=== PATIENT | female | born 1980 | race Hispanic/Latino ===

== ENCOUNTER 2018-07-24 01:24 | Inpatient (IN) | payer OTHER ==
[~2018-07-24] VITALS: Ht 157.5 cm; Wt 92.1 kg
[~2018-07-24 01:24] MED LIST: GLUCOPHAGE1000 M1 PO
--- NOTE | 2018-07-24 15:53 | Patient Discharge Instructions ---
Discharge Instructions General Discharge Information You were seen/treated for: Morbid obesity, diabetes, sleep apnea You had these procedures: Laparoscopic Sleeve Gastrectomy Watch for these problems: Bleeding, signs of infection including fever >101, increased redness, swelling or unusual drainage from incisions, increased abdominal pain, nausea, vomiting, excessive diarrhea, or no bowel movements, or any other problems, questions or concerns Do not soak the wound: Yes Daily wet to dry dressings: No No bath, but you may shower: Yes Other wound care: Glue will slough off on its own Diet Continue normal diet: No Recommended Diet: Bariatric Activity Full Activity/No Limits: No Activity Self Limited: Yes Pounds, do NOT lift more than: 10 (x 2weeks) Activity Limited to: Weight bear as tolerated Acute Coronary Syndrome Inclusion Criteria At DC or during hospital stay patient has or had the following: ACS DIAGNOSIS No Discharge Core Measures Meds if any: Prescribed or Continued at Discharge Meds if any: NOT Prescribed or Continued at Discharge Congestive Heart Failure Inclusion Criteria At DC or during hospital stay patient has or had the following: CHF DIAGNOSIS No Discharge Core Measures Meds if any: Prescribed or Continued at Discharge Meds if any: NOT Prescribed or Continued at Discharge Cerebrovascular accident Inclusion Criteria At DC or during hospital stay patient has or had the following: CVA/TIA Diagnosis No Discharge Core Measures Meds if any: Prescribed or Continued at Discharge Meds if any: NOT Prescribed or Continued at Discharge Venous thromboembolism Inclusion Criteria VTE Diagnosis No VTE Type NONE VTE Confirmed by (Test) NONE Discharge Core Measures - Per Current guidelines, there needs to be overlap - treatment for the first 5 days of Warfarin therapy. - If discharged on Warfarin prior to 5 days of - overlap therapy, the patient will need to be - assessed for post discharge needs including - *Post discharge parental anticoagulation - *Warfarin and/or parental anticoagulation education - *Follow up date to check INR post discharge At least 5 days overlap therapy as Inpatient No Meds if any: Prescribed or Continued at Discharge Note: Overlap Therapy is Warfarin and Anticoagulant Meds if any: NOT Prescribed or Continued at Discharge
--- NOTE | 2018-07-24 15:54 | Surg Short-stay <48hrs Dis Sum ---
Visit Information Visit Dates Admission Date: 07/24/18 Discharge Date: 07/25/18 Surgical Short Stay DC Summary Admission Diagnosis: Morbid obesity, diabetes, sleep apnea Final Diagnosis: Morbid obesity Procedure(s): Robotic sleeve gastrectomy Summary/Significant Findings: This is a 38 yo female with a past medical history significant for ESTEE, DMII and morbid obesity who presented electively for robotic sleeve gastrectomy. Patient underwent the aforementioned procedure without complication. Postoperative course was uncomplicated. She was initiated on a bariatric stage I diet day of surgery and underwent an upper GI on postop day #1 which revealed no obstruction or leak. She was placed back on a bariatric stage I diet which she tolerated without difficulty. By time of discharge patient was ambulating, voiding, tolerating a bariatric stage I diet, and pain was well-controlled with oral analgesia. Plan is for the patient to follow-up with Dr. Knight in 1-2 weeks. She was instructed to call sooner with any other problems, questions, or concerns. Full details of her hospital course, operative report, and diagnostic studies can be found in the patient's electronic chart. Condition at Discharge: Stable Discharge Disposition: home or self care Discharge instructions provided to patient/family: Yes Post discharge follow-up plan: With Dr. Knight in 1-2 weeks Copies to: Aydin Xiao
--- NOTE | 2018-07-24 15:54 | Admission Core Measures ---
Acute Coronary Syndrome (CM) ACS Core Measures Acute Coronary Syndrome Diagnosis No Congestive Heart Failure (NEW) CHF Core Measures Congestive Heart Failure Diagnosis No Cerebrovascular Accident CVA Core Measures CVA/TIA Diagnosis No Venous Thromboembolism VTE Core Vineet (View Protocol) VTE Risk Factors Surgery No Mechanical VTE Prophylaxis d/t N/A MechProphylax Ordered No VTE Pharm Prophylaxis d/t NA PharmProphylax ordered Problem List As ranked by this Provider includes Assessment & Plan 1. Morbid obesity 2. S/P laparoscopic sleeve gastrectomy HOME MEDS Home Med List Metformin HCl (Glucophage) 1,000 MG TABLET 1 TAB PO DAILY DIABETES (Reported)
--- NOTE | 2018-07-24 17:52 | PN- General Surgery ---
Subjective Subjective: POC Pt recovering in PACU, complains of nausea, has not vomited. Has had some ice- chips only. has some mid-abdominal pain. Denies CP/SOB. Has not voided or ambulated yet Objective Vital Signs and I&Os VSS, afebrile Physical Exam: gen- NAD resp- clear cardiac-RRR abd- soft, NT, minimal BS. incisions clean and dry, covered with glue. Current Medications: Current Medications Sig/Rangel Start time Last Medication Dose Route Stop Time Status Admin Acetaminophen 1,000 MG Q6H 07/24 1545 UNVr N/A 1 UNIT IV 07/25 0959 Acetaminophen 0 .STK-MED ONE 07/24 1325 DC IV Cefazolin Sodium 2,000 MG ONCE 07/24 0000 NR IV 07/24 2359 Dexamethasone 10 MG ONCE 07/24 0000 NR IV 07/24 2359 Diphenhydramine HCl 50 MG Q6P PRN 07/24 1545 UNVr IV Docusate Sodium 100 MG BID 07/24 2100 UNVr PO Enoxaparin Sodium 40 MG DAILY 07/25 0900 UNVr SC Fentanyl Citrate 0 .STK-MED ONE 07/24 1326 DC .ROUTE Haloperidol 0 .STK-MED ONE 07/24 1739 DC .ROUTE Heparin Sodium 0 .STK-MED ONE 07/24 1129 DC (Porcine) .ROUTE Heparin Sodium 5,000 UNIT PRE 07/24 0000 NR (Porcine) SC 07/24 2359 Hydromorphone HCl 0 .STK-MED ONE 07/24 1732 DC .ROUTE Hydromorphone HCl 0 .STK-MED ONE 07/24 1711 DC .ROUTE Hydromorphone HCl 0 .STK-MED ONE 07/24 1659 DC .ROUTE Hydromorphone HCl 0 .STK-MED ONE 07/24 1636 DC .ROUTE Hydromorphone HCl 0 .STK-MED ONE 07/24 1325 DC .ROUTE Insulin Human Regular 0 TIDAC/HS 07/24 1700 UNVr SC Ketorolac 15 MG Q6 07/24 1800 UNVr Tromethamine IV 07/25 1801 Ketorolac 0 .STK-MED ONE 07/24 1326 DC Tromethamine .ROUTE Lactated Ringer's 1,000 ML Q13H 07/24 1545 UNVr IV Metoclopramide HCl 10 MG Q6P PRN 07/24 1545 UNVr IV Morphine Sulfate 2 MG Q4P PRN 07/24 1545 UNVr IV Morphine Sulfate 4 MG Q4P PRN 07/24 1545 UNVr IV Ondansetron HCl 0 .STK-MED ONE 07/24 1606 DC .ROUTE Ondansetron HCl 4 MG Q6P PRN 07/24 1545 UNVr IV Ondansetron HCl 0 .STK-MED ONE 07/24 1325 DC .ROUTE Oxycodone/ 1 TAB Q4P PRN 07/24 1545 UNVr Acetaminophen PO Oxycodone/ 2 TAB Q4P PRN 07/24 1545 UNVr Acetaminophen PO Pantoprazole Sodium 40 MG DAILY 07/24 1538 UNVr IV Polyethylene Glycol 17 GM DAILY 07/25 0900 UNVr PO Simethicone 80 MG TID 07/24 2100 UNVr PO Trimethobenzamide HCl 0 .STK-MED ONE 07/24 1704 DC IM Results Last 48 Hours of Labs: Laboratory Tests 07/24 1110 Urines Urine Test NEGATIVE Assessment/Plan Assessment/Plan 38yo obese F SP robotic sleeve gastrectomy POD0. stable in PACU with complaints of nausea anti-emetics as needed bariatric stage 1 diet as tolerated NPO after midnight for possible upper GI in AM if still nauseous pain management IVF overngiht FU AM labs dvt ppx- lovenox gi ppx- protonix regular home meds IS encourage ambulation dc planning- possibly home tomorrow if nausea subsides Core Measures Venous Thromboembolism VTE Risk Factors Surgery No Mechanical VTE Prophylaxis d/t N/A MechProphylax Ordered No VTE Pharm Prophylaxis d/t NA PharmProphylax ordered
--- NOTE | 2018-07-24 19:01 | Operative Report ---
Operative/Inv Procedure Report Surgery Date: 07/24/18 Name of Procedure: Laparoscopic assisted sleeve gastrectomy with da Red robot Pre-Operative Diagnosis: Morbid obesity Post-Operative Diagnosis: Morbid obesity Estimated Blood Loss: less than 50ml Surgeon/Registered Mail Clerk: Antonia JARAMILLO,Seth Ruth PA-C Anesthesia: general endotracheal tube, block IV Fluids: LR Urine Output: not measured Drains: none Specimens: portion of stomach Complications: none Condition: stable Operative/Procedure Note Note: After informed consent and proper identification patient was taken to the operating room placed on the operating table in supine position. Venodyne stockings were applied. She underwent a general endotracheal anesthetic. Anesthesia placed a tap block. The abdomen was prepped and draped in normal sterile fashion. Using a 0 5 mm Stortz laparoscope through an 8 mm robotic this support we entered just to the left of midline umbilicus dissecting through the rectus muscle and the posterior sheath and peritoneum without difficulty insufflating the abdomen with 14 mm CO2 pressure we had excellent visualization was placed additional trochars to 8 mm trochars one to the right of midline umbilicus 1 to the left lateral position and then in between the 2 left-sided ports a 12 mm trocar. We docked the robot and targeted to arm #2 the camera port in the 8 mm port just to the left of midline umbilicus. We placed the Mikhail liver retractor in the upper midline retract the left lobe of the liver. There is no evidence of a hiatal hernia. We had excellent visualization. We docked the remaining arms of the robot. We used 2 graspers in the arms 1 and 4 and a vessel sealer in arm 2 and began to dissect the vessels off of the greater curvature of the stomach preserving the gastroepiploic's and taking the short gastrics all the way up to the ankle has reflected the fundus of the stomach medially off of the left basilio. We had anesthesia to decompress the stomach with an orogastric tube and then remove it and then place a 40 Ukrainian bougie. We were careful to identify the splenic vessel spleen and pancreas not to injure them. We began stapling using 3 Urdu 45 mm cartridges followed by 3 balloon 45 mm cartridges to completely transect the remnant stomach from the newly created sleeve we oversewed the entire staple line using a 3-0 absorbable V lock suture on a CV23 needle. We had excellent hemostasis there is no significant bleeding. Sponge and instrument counts were correct as removed the needle and all instruments we removed the Mikhail liver retractor removed the remnant stomach and a 12 Endo Catch bag through the 12 mm port. We sewed the skin incisions closed with 4-0 Monocryl subcuticular stitches. Skin glue was applied. The patient tolerated the procedure without complications was extubated and taken the recovery room in stable condition Findings: smooth liver no hiatal hernia Discharge Disposition: PACU
[2018-07-24 20:00] VITALS: BP 144/78
[2018-07-24 23:59] VITALS: BP 134/76
[2018-07-25 03:58] VITALS: BP 132/70
[2018-07-25 08:13] LABS: ABSOLUTE BASOPHIL COUNT 0 /CUMM (0.0-0.2); ABSOLUTE EOSINOPHIL COUNT 0 /CUMM (0.0-0.7); ABSOLUTE GRANULOCYTE CT 15.9 /CUMM (1.4-6.5); ABSOLUTE MONOCYTE COUNT 0.9 /CUMM (0.10-0.60); BASOPHIL % 0 % (0.0-2.0); EOSINOPHIL % 0 % (0-5); HEMATOCRIT 34.7 % (37-47); MEAN CORPUSCULAR HGB CONC 34.1 G/DL (33.0-37.0); MEAN CORPUSCULAR VOLUME 82.1 FL (81.0-99.0); MEAN PLATELET VOLUME 8.2 FL (7.4-10.4); PLATELET COUNT 359 /CUMM (130-400); RBC DISTRIBUTION WIDTH 13.9 % (11.5-14.5); RED BLOOD CELL CT 4.23 /CUMM (4.20-5.40); WHITE BLOOD CELL COUNT 17.8 /CUMM (4.8-10.8)
[2018-07-25 08:15] VITALS: BP 134/66
--- NOTE | 2018-07-25 08:28 | PN- Bariatrics ---
Subjective Subjective: Reports previous nausea / vomiting has resolved. Currently npo, awaiting upper gi study. Out of bed to bathroom. Voiding well. No dizziness. No shortness of breath. No chest pains. Objective Vital Signs and I&Os Vital Signs Date Time Temp Pulse Resp B/P B/P Pulse O2 O2 Flow FiO2 Mean Ox Delivery Rate 07/25 815 98.4 106 18 134/66 98 Room Air 07/25 0358 98.5 108 18 132/70 95 Room Air 07/24 2359 98.6 112 18 134/76 95 Room Air 07/24 2050 Room Air Room Air 07/24 2000 98.4 107 18 144/78 93 Room Air Intake & Output 07/25 1600 07/25 0807/25 0000 07/24 1600 07/24 0000 Intake Total 760 50 Output Total 475 305 Balance 285 -255 Intake, IV 760 20 Intake, Oral 0 30 Number 0 0 Bowel Movements Output, 5 Emesis Output, Urine 475 300 Patient 203 lb Weight Weight Bed scale Measurement Method Physical Exam: General - alert & oriented x 3. comfortable. no acute distress. Lungs - clear bilaterally. no w/r/r. Cardiac - s1s2. slightly tachycardic. Abdomen - soft. incisions well approximated with skin glue. no drains. osmar- incisional tenderness. Extremities - warm bilaterally. no c/c/e. calves soft and nontender b/l. athrombics active. Current Medications: Current Medications Sig/Rangel Start time Last Medication Dose Route Stop Time Status Admin Acetaminophen 1,000 MG Q6H 07/24 1545 AC 07/25 N/A 1 UNIT IV 07/25 0959 0407 Acetaminophen 0 .STK-MED ONE 07/24 1325 DC IV Cefazolin Sodium 2,000 MG ONCE 07/24 0000 DC IV 07/24 2359 Dexamethasone 10 MG ONCE 07/24 0000 DC IV 07/24 235 Diphenhydramine HCl 50 MG Q6P PRN 07/24 1545 AC IV Docusate Sodium 100 MG BID 07/24 2100 DC PO Enoxaparin Sodium 40 MG DAILY 07/25 0900 AC SC Fentanyl Citrate 0 .STK-MED ONE 07/24 1326 DC .ROUTE Haloperidol 0 .STK-MED ONE 07/24 1739 DC .ROUTE Heparin Sodium 0 .STK-MED ONE 07/24 1129 DC (Porcine) .ROUTE Heparin Sodium 5,000 UNIT PRE 07/24 0000 DC (Porcine) SC 07/24 2359 Hydrocodone Bitart/ 15 ML Q4-6 PRN PRN 07/25 08 AC Acetaminophen PO Hydromorphone HCl 0 .STK-MED ONE 07/24 1900 DC .ROUTE Hydromorphone HCl 0 .STK-MED ONE 07/24 1820 DC .ROUTE Hydromorphone HCl 0 .STK-MED ONE 07/24 1755 DC .ROUTE Hydromorphone HCl 0 .STK-MED ONE 07/24 1732 DC .ROUTE Hydromorphone HCl 0 .STK-MED ONE 07/24 1711 DC .ROUTE Hydromorphone HCl 0 .STK-MED ONE 07/24 1659 DC .ROUTE Hydromorphone HCl 0 .STK-MED ONE 07/24 1636 DC .ROUTE Hydromorphone HCl 0 .STK-MED ONE 07/24 1325 DC .ROUTE Insulin Human Regular 0 Q6 07/24 2359 AC 07/25 SC 0636 Insulin Human Regular 0 TIDAC/HS 07/24 1700 DC SC Ketorolac 15 MG Q6 07/24 1800 AC 07/25 Tromethamine IV 07/25 1801 0636 Ketorolac 0 .STK-MED ONE 07/24 1326 DC Tromethamine .ROUTE Lactated Ringer's 1,000 ML Q13H 07/24 1545 AC 07/24 IV 1955 Metoclopramide HCl 10 MG Q6P PRN 07/24 1545 DC 07/24 IV 2249 Morphine Sulfate 2 MG Q4P PRN 07/24 1545 AC IV Morphine Sulfate 4 MG Q4P PRN 07/24 1545 AC 07/25 IV 0822 Ondansetron HCl 0 .STK-MED ONE 07/24 1606 DC .ROUTE Ondansetron HCl 4 MG Q6P PRN 07/24 1545 AC 07/24 IV 1955 Ondansetron HCl 0 .STK-MED ONE 07/24 1325 DC .ROUTE Oxycodone/ 1 TAB Q4P PRN 07/24 1545 DC Acetaminophen PO Oxycodone/ 2 TAB Q4P PRN 07/24 1545 DC Acetaminophen PO Pantoprazole Sodium 40 MG DAILY 07/24 1538 AC IV Polyethylene Glycol 17 GM DAILY 07/25 0900 CAN PO Simethicone 80 MG TID 07/24 2100 AC 07/24 PO 2126 Trimethobenzamide HCl 0 .STK-MED ONE 07/24 1704 DC IM Results Last 48 Hours of Labs: Laboratory Tests 07/25 07/24 0731 1110 Chemistry Sodium Pending Potassium Pending Chloride Pending Carbon Dioxide Pending Anion Gap Pending BUN Pending Creatinine Pending BUN/Creatinine Ratio Pending Hematology CBC w Diff Pending WBC Pending RBC Pending Hgb Pending Hct Pending MCV Pending MCH Pending MCHC Pending RDW Pending Plt Count Pending MPV Pending Urines Urine Test NEGATIVE Assessment/Plan Assessment/Plan This 38 year old female with history of morbid obesity and niddm, POD#1 s/p laparoscopic assisted sleeve gastrectomy with da Red robot, post-op nausea / vomiting resolved this morning currently npo / iv fluids, awaiting upper gi study pain medication as ordered oob/ambulation encouraged lovenox - dvt ppx. no indication for lovenox at discharge, as per pre-op risk assessment protonix - gi ppx accuchecks / ss coverage. hold metformin f/u labs and ugi study stage 1 diet after ugi anti-emetics as ordered will d/w Core Measures Venous Thromboembolism VTE Risk Factors Surgery No Mechanical VTE Prophylaxis d/t N/A MechProphylax Ordered No VTE Pharm Prophylaxis d/t NA PharmProphylax ordered
[2018-07-25 08:52] LABS: GRANULOCYTE % 89.4 % (42.2-75.2)
--- NOTE | 2018-07-25 09:43 | RADIOLOGY REPORT ---
EXAMINATION: FL UPPER GI SERIES CLINICAL INFORMATION: 38-year-old female with history of morbid obesity status post sleeve gastrectomy. COMPARISON: None TECHNIQUE: A single contrast upper GI series with fluoroscopy and spot imaging was performed. The patient ingested 30 mL of Gastroview contrast material without difficulty and was evaluated in the upright and recumbent positions. FLUOROSCOPY TIME: 19 seconds. NUMBER OF IMAGES: 7 images FINDINGS: After oral intake of 30 mL of Gastroview contrast material, there was no delay in passage of contrast through the esophagus and into the stomach, which had the expected configuration after sleeve gastrectomy. There was normal passage of contrast into the duodenum. No evidence of a fixed filling defect, mucosal thickening, upper gastrointestinal tract obstruction or contrast leakage. IMPRESSION: Normal configuration of the stomach after sleeve gastrectomy. No contrast leakage.
[2018-07-25] MEDS ORDERED: HYDROCODON-ACET15 ML PO (11:44)
[2018-07-25] MEDS ORDERED: PROTONIX40 M3 PO (11:47)
[2018-07-25 14:15] VITALS: BP 128/76
== END 2018-07-25 17:01 | DRG 403 ==
LOC: SDA 01:24 → ENRESERV 19:01 → ENTRNSPT 19:26 → EDTRNSPT 19:29 → EDTRNSPTSTS 19:29 → 2NB 19:33 → CMPTRNSPT 19:40 → 2NB 07-25 17:01
PROVIDERS: Physician Assistant Surgical
PROC: 0DB64Z3 Excision of Stomach, Percutaneous Endoscopic Approach, Vertical (ICD-10-PCS; principal; 2018-07-24)
PROC: 8E0W4CZ Robotic Assisted Procedure of Trunk Region, Percutaneous Endoscopic Approach (ICD-10-PCS; principal; 2018-07-24)
DX: E66.01 Morbid (severe) obesity due to excess calories (principal); Z68.37 Body mass index [BMI] 37.0-37.9, adult; G47.33 Obstructive sleep apnea (adult) (pediatric); Z79.84 Long term (current) use of oral hypoglycemic drugs; Z90.49 Acquired absence of other specified parts of digestive tract; Z88.1 Allergy status to other antibiotic agents
CPT/HCPCS: 2NBSP; 36592; 74240; 81025; 82436; J0131; J0690; J1100; J1630; J1644; J1650; J1815; J1885; J2405; J2765; J3250; J3490; J7120